=== PATIENT | male | born 2000 | race Caucasian/White ===

== ENCOUNTER 2021-08-15 03:03 | Inpatient (IN) ==
--- NOTE | 2021-08-15 03:27 | Emergency Department Note ---
Impression & Plan Suicide attempt, Alcohol intoxication The case will be signed out to Dr. Sanchez at change of shift ED Provider Note NAME: KYLER CARRION AGE: 20 SEX: M ARRIVES VIA: Ambulance INFORMANT: Patient ED PROVIDER(S): Monae Prado DO CHIEF COMPLAINT: Suicide attempt PLAN: Disposition: The case will be signed out to Dr. Sanchze at change of shift Condition: Stable MEDICAL DECISION MAKING: This is a 20-year-old male patient who presents to the emergency department after taking an Advil which he has a known allergy to (anaphylaxis) in an effort to kill himself. The patient has had increasing depression recently. Patient does see a counselor weekly for therapy. The patient will be medically cleared at 8 AM for formal evaluation by the ED psychiatric caser. Triage Nursing notes reviewed and agree with them Additional history obtained from the patient's friends who petitioned a 302 Vital Signs: reviewed and remarkable for hypertension and tachycardia Differential diagnosis: Mood disorder, alcohol intoxication, suicide attempt Diagnostics interpreted by me: Laboratory studies: See below HPI: 20/M arrives for evaluation of suicide attempt. The patient was out drinking beer tonight. Upon returning home, the patient was increasingly depressed and made an attempt to harm himself by taking a 200 mg Advil tablet. 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 ROS: See above HPI for pertinent positives & negatives. A total of 10 systems reviewed and were otherwise negative. PAST MEDICAL HISTORY:Anxiety and depression; previous suicide attempt in sixth grade by striking himself in the head PAST SURGICAL HISTORY:See Below FAMILY HISTORY:See Below SOCIAL HISTORY:[employer] student with occasional alcohol use HOME MEDICATIONS:See Below ALLERGIES:See list VITALS:See Below PHYSICAL EXAMINATION: HEENT: Head - normocephalic and atraumatic. Pupils are equal, round, and reactive to light. Extraocular eye muscles are intact, and sclera are anicteric. Nose - moist nasal mucosa without discharge. Mouth - moist buccal mucosa. Oropharynx is nonerythematous and there is no tonsillar exudate or edema noted. There was no uvular edema noted. Neck: Supple; no JVD, no cervical lymphadenopathy. Heart: Regular rate and rhythm. There is a normal S1 and S2 with no murmurs, clicks, or gallops appreciated. Lungs: Clear to auscultation bilaterally with no wheezes, rales, or rhonchi. Abdomen: Soft, completely nontender, nondistended, with good bowel sounds. There are no palpable pulsatile masses or hepatosplenomegaly. There is no guarding, rigidity, or rebound noted. Extremities: No evidence of cyanosis, clubbing, or edema. There are easily palpable peripheral pulses. Skin: warm and dry with good turgor and no rashes. Psych: The patient is tearful on exam. He admits to thoughts of suicide and an attempt to harm himself by taking the Advil. ED COURSE: Times/Reassessments: 0310: The patient was evaluated in room A2. A complete history and physical was performed. An order was placed for continuous cardiac monitoring. The patient was in a normal sinus rhythm at a rate of 82. Laboratory studies were drawn as above. A caser spoke with the patient's friends who are petitioning a 302. The patient had no obvious signs of anaphylactic reaction to the Advil. He was then moved into the mental health unit here in the emergency department. The patient will require some time to sober up so that he can be fully evaluated from a psychiatric standpoint. Monae Prado, Past Med/Surg History Medical History No pertinent past medical history Surgical History No pertinent past surgical history Social History Smoking Status: Never smoker Hx Alcohol Use: Yes Hx Substance Use: No Preferred Language: Kazakh marital status: Single Current Living Situation: Other current occupational status: student Feels Safe at Home: Yes Allergies Allergies Allergy/AdvReac Type Severity Reaction Status Date / Time aspirin Allergy Severe Anaphylaxis Verified 05/05/21 21:01 ibuprofen Allergy Severe Anaphylaxis Verified 05/05/21 21:01 Home Meds Home Medications Medication Instructions Recorded Confirmed diphenhydramine HCl 25 mg capsule 25 mg PO DIRECTED PRN 05/05/21 05/05/21 (Benadryl) famotidine 20 mg tablet (Pepcid) 20 mg PO DAILY 05/05/21 05/05/21 Previous Rx's Medication Instructions Recorded cephalexin 500 mg capsule 500 mg PO Q8H #15 cap 05/03/21 Results & Data (ED) Vital Signs Vital Signs - 24 hr 08/15/21 03:11 08/15/21 04:00 08/15/21 06:00 Temperature 36.5 C Temperature Source Oral Pulse Rate 101 H Pulse Rate [Apical] 87 89 Respiratory Rate 18 18 16 Respiratory Effort / Characteristics Non-Labored Spontaneous Non-Labored Spontaneous Respiratory Depth Normal Normal Blood Pressure 150/81 H Blood Pressure [Right Arm] 126/57 L 123/68 Blood Pressure Mean 104 Blood Pressure Mean [Right Arm] 80 86 Blood Pressure Position Sitting Pulse Oximetry 97 95 95 Oxygen Delivery Method Room Air Room Air Room Air Sepsis Recent Fever Within 48 Hours No Sepsis New/Unexplained Change in Mental Status N/A Sepsis Action Taken by Nursing No Action Required Laboratory Data Result diagrams: 08/15/21 04:04 08/15/21 04:04 Lab Results 08/15/21 08/15/21 08/15/21 Range/Units 03:20 03:20 04:04 WBC 6.56 (4.8-10.8) K/uL RBC 4.88 (4.7-6.1) M/uL Hgb 14.5 (14.0-18.0) g/dL Hct 43.6 (42-52) % MCV 89.3 (80-100) fL MCH 29.7 (25-34) pg MCHC 33.3 (32-36) g/dL RDW Std Deviation 44.2 (36.4-46.3) fL RDW Coeff of Windy 13.5 (11.5-14.5) % Plt Count 236 (130-400) K/uL MPV 10.0 (7.4-10.4) fL Immature Gran % (Auto) 0.8 % Neut % (Auto) 57.4 % Lymph % (Auto) 31.3 % [place] % (Auto) 8.2 % Eos % (Auto) 2.1 % Baso % (Auto) 0.2 % Neut # (Auto) 3.77 (1.4-6.5) K/uL Lymph # (Auto) 2.05 (1.2-3.4) K/uL [place] # (Auto) 0.54 (0.11-0.59) K/uL Eos # (Auto) 0.14 (0-0.5) K/uL Baso # (Auto) 0.01 (0-0.2) K/uL Immature Gran # (Auto) 0.05 H (0.00-0.02) K/uL Sodium (136-145) mmol/L Potassium (3.5-5.1) mmol/L Chloride (98-107) mmol/L Carbon Dioxide (21-32) mmol/L Anion Gap (3-11) BUN (6-23) mg/dl Creatinine (0.6-1.4) mg/dl Est Cr Clr Drug Dosing Est GFR ( Amer) ml/min Est GFR (Non-Af Amer) ml/min BUN/Creatinine Ratio (10-20) Glucose (70-99(Fasting)) mg/dl Calcium (8.5-10.1) mg/dl Total Bilirubin (0.2-1.0) mg/dl AST (13-39) U/L ALT (7-52) U/L Alkaline Phosphatase (34-104) U/L Total Protein (6.0-8.3) gm/dl Albumin (3.4-5.0) gm/dl Globulin (2.5-4.0) gm/dl Albumin/Globulin Ratio (0.9-2) TSH (0.300-4.500) uIu/ml Urine Color Yellow Urine Appearance Clear (Clear) Urine pH 5.0 (4.5-7.5) Ur Specific [place] 1.003 (1.000-1.030) Urine Protein Negative (Negative) Urine Glucose (UA) Negative (Negative) Urine Ketones Negative (Negative) Urine Blood Negative (Negative) Urine Nitrite Negative (Negative) Urine Bilirubin Negative (Negative) Urine Urobilinogen Negative (Negative) Ur Leukocyte Esterase Negative (Negative) Salicylates (3.0-30) mg/dl Urine Opiates Screen Neg (Neg) Ur Methadone, Qual Neg (Neg) Acetaminophen (10-30) ug/ml Urine Barbiturates Neg (Neg) Ur Phencyclidine (PCP) Neg (Neg) U Amphetamin/Meth Scrn Neg (Neg) MDMA (Ecstasy) Screen Neg (Neg) U Benzodiazepines Scrn Neg (Neg) Ur Cocaine Metabolite Neg (Neg) U Marijuana (THC) Screen Neg (Neg) Ethyl Alcohol mg/dL (<10.0) mg/dl 08/15/21 08/15/21 08/15/21 Range/Units 04:04 04:04 04:04 WBC (4.8-10.8) K/uL RBC (4.7-6.1) M/uL Hgb (14.0-18.0) g/dL Hct (42-52) % MCV (80-100) fL MCH (25-34) pg MCHC (32-36) g/dL RDW Std Deviation (36.4-46.3) fL RDW Coeff of Windy (11.5-14.5) % Plt Count (130-400) K/uL MPV (7.4-10.4) fL Immature Gran % (Auto) % Neut % (Auto) % Lymph % (Auto) % [place] % (Auto) % Eos % (Auto) % Baso % (Auto) % Neut # (Auto) (1.4-6.5) K/uL Lymph # (Auto) (1.2-3.4) K/uL [place] # (Auto) (0.11-0.59) K/uL Eos # (Auto) (0-0.5) K/uL Baso # (Auto) (0-0.2) K/uL Immature Gran # (Auto) (0.00-0.02) K/uL Sodium 139 (136-145) mmol/L Potassium 3.8 (3.5-5.1) mmol/L Chloride 109 H (98-107) mmol/L Carbon Dioxide 20 L (21-32) mmol/L Anion Gap 10 (3-11) BUN 14 (6-23) mg/dl Creatinine 0.98 (0.6-1.4) mg/dl Est Cr Clr Drug Dosing Not Reportable Est GFR ( Amer) 129.0 ml/min Est GFR (Non-Af Amer) 111.3 ml/min BUN/Creatinine Ratio 14.3 (10-20) Glucose 133 H (70-99(Fasting)) mg/dl Calcium 8.7 (8.5-10.1) mg/dl Total Bilirubin 0.3 (0.2-1.0) mg/dl AST 21 (13-39) U/L ALT 15 (7-52) U/L Alkaline Phosphatase 48 (34-104) U/L Total Protein 7.3 (6.0-8.3) gm/dl Albumin 4.5 (3.4-5.0) gm/dl Globulin 2.8 (2.5-4.0) gm/dl Albumin/Globulin Ratio 1.6 (0.9-2) TSH 0.780 (0.300-4.500) uIu/ml Urine Color Urine Appearance (Clear) Urine pH (4.5-7.5) Ur Specific [place] (1.000-1.030) Urine Protein (Negative) Urine Glucose (UA) (Negative) Urine Ketones (Negative) Urine Blood (Negative) Urine Nitrite (Negative) Urine Bilirubin (Negative) Urine Urobilinogen (Negative) Ur Leukocyte Esterase (Negative) Salicylates < 3.0 L (3.0-30) mg/dl Urine Opiates Screen (Neg) Ur Methadone, Qual (Neg) Acetaminophen < 3 L (10-30) ug/ml Urine Barbiturates (Neg) Ur Phencyclidine (PCP) (Neg) U Amphetamin/Meth Scrn (Neg) MDMA (Ecstasy) Screen (Neg) U Benzodiazepines Scrn (Neg) Ur Cocaine Metabolite (Neg) U Marijuana (THC) Screen (Neg) Ethyl Alcohol mg/dL (<10.0) mg/dl 08/15/21 Range/Units 04:04 WBC (4.8-10.8) K/uL RBC (4.7-6.1) M/uL Hgb (14.0-18.0) g/dL Hct (42-52) % MCV (80-100) fL MCH (25-34) pg MCHC (32-36) g/dL RDW Std Deviation (36.4-46.3) fL RDW Coeff of Windy (11.5-14.5) % Plt Count (130-400) K/uL MPV (7.4-10.4) fL Immature Gran % (Auto) % Neut % (Auto) % Lymph % (Auto) % [place] % (Auto) % Eos % (Auto) % Baso % (Auto) % Neut # (Auto) (1.4-6.5) K/uL Lymph # (Auto) (1.2-3.4) K/uL [place] # (Auto) (0.11-0.59) K/uL Eos # (Auto) (0-0.5) K/uL Baso # (Auto) (0-0.2) K/uL Immature Gran # (Auto) (0.00-0.02) K/uL Sodium (136-145) mmol/L Potassium (3.5-5.1) mmol/L Chloride (98-107) mmol/L Carbon Dioxide (21-32) mmol/L Anion Gap (3-11) BUN (6-23) mg/dl Creatinine (0.6-1.4) mg/dl Est Cr Clr Drug Dosing Est GFR ( Amer) ml/min Est GFR (Non-Af Amer) ml/min BUN/Creatinine Ratio (10-20) Glucose (70-99(Fasting)) mg/dl Calcium (8.5-10.1) mg/dl Total Bilirubin (0.2-1.0) mg/dl AST (13-39) U/L ALT (7-52) U/L Alkaline Phosphatase (34-104) U/L Total Protein (6.0-8.3) gm/dl Albumin (3.4-5.0) gm/dl Globulin (2.5-4.0) gm/dl Albumin/Globulin Ratio (0.9-2) TSH (0.300-4.500) uIu/ml Urine Color Urine Appearance (Clear) Urine pH (4.5-7.5) Ur Specific [place] (1.000-1.030) Urine Protein (Negative) Urine Glucose (UA) (Negative) Urine Ketones (Negative) Urine Blood (Negative) Urine Nitrite (Negative) Urine Bilirubin (Negative) Urine Urobilinogen (Negative) Ur Leukocyte Esterase (Negative) Salicylates (3.0-30) mg/dl Urine Opiates Screen (Neg) Ur Methadone, Qual (Neg) Acetaminophen (10-30) ug/ml Urine Barbiturates (Neg) Ur Phencyclidine (PCP) (Neg) U Amphetamin/Meth Scrn (Neg) MDMA (Ecstasy) Screen (Neg) U Benzodiazepines Scrn (Neg) Ur Cocaine Metabolite (Neg) U Marijuana (THC) Screen (Neg) Ethyl Alcohol mg/dL 200.8 H (<10.0) mg/dl Discharge Plan Visit Data Chief Complaint: Mental Health Evaluation Stated Complaint: ETOH w/50mg ZOLOFT, 200mg Ibuproven (all. NSAIDs) ED Provider: Monae Prado Discharge Problem: Suicide attempt, Alcohol intoxication Forms Stand Alone Forms: My [facility], Suicide Prevention Resources Prescriptions Prescriptions: No Action cephalexin 500 mg capsule 500 mg PO Q8H Qty: 15 RF: 0 famotidine [Pepcid] 20 mg Tablet 20 mg PO DAILY RF: 0 diphenhydramine HCl [Benadryl] 25 mg Capsule 25 mg PO DIRECTED PRN (Reason: Allergic Reaction) RF: 0 Referrals [facility]errals: [facility] [Primary Care Provider] - Discharge Problem: Alcohol intoxication Qualifiers: Complication of substance-induced condition: with unspecified complication Qualified Code(s): F10.929 - Alcohol use, unspecified with intoxication, unspecified
[2021-08-15 03:49] LABS: Appearance Urine Clear (Clear); Bilirubin Urine Negative (Negative); Blood Urine Negative (Negative); Color Urine Yellow; Glucose Urine UA Negative (Negative); Ketones Urine Negative (Negative); Leukocyte Esterase Urine Negative (Negative); Nitrite Urine Negative (Negative); Protein Urine Negative (Negative); Specific Gravity Urine 1.003 (1.000-1.030); Urobilinogen Urine Negative (Negative)
[2021-08-15 04:24] LABS: Basophils # (auto) 0.01 K/uL (0-0.2); Basophils % (auto) 0.2 %; Eosinophils # (auto) 0.14 K/uL (0-0.5); Eosinophils % (auto) 2.1 %; Hematocrit (blood only) 43.6 % (42-52); Hemoglobin 14.5 g/dL (14.0-18.0); Immature Granulocytes # (auto) 0.05 K/uL (0.00-0.02); Immature Granulocytes % (auto) 0.8 %; Lymphocytes # (auto) 2.05 K/uL (1.2-3.4); Lymphocytes % (auto) 31.3 %; Mean Corpuscular Hemoglobin 29.7 pg (25-34); Mean Corpuscular Hgb Conc 33.3 g/dL (32-36); Mean Corpuscular Volume 89.3 fL (80-100); Monocytes # (auto) 0.54 K/uL (0.11-0.59); Monocytes % (auto) 8.2 %; Neutrophils # (auto) 3.77 K/uL (1.4-6.5); Neutrophils % (auto) 57.4 %; Platelet Count 236 K/uL (130-400); RDW Coefficient of Variation 13.5 % (11.5-14.5); RDW Standard Deviation 44.2 fL (36.4-46.3); Red Blood Count 4.88 M/uL (4.7-6.1); White Blood Count 6.56 K/uL (4.8-10.8)
[2021-08-15 04:42] LABS: Alanine Aminotransferase 15 U/L (7-52); Albumin Globulin Ratio 1.6 (0.9-2); Albumin Level 4.5 gm/dl (3.4-5.0); Alkaline Phosphatase 48 U/L (34-104); Anion Gap 10 (3-11); Aspartate Aminotransferase 21 U/L (13-39); BUN Creatinine Ratio 14.3 (10-20); Bilirubin,Total 0.3 mg/dl (0.2-1.0); Blood Urea Nitrogen 14 mg/dl (6-23); Calcium 8.7 mg/dl (8.5-10.1); Carbon Dioxide 20 mmol/L (21-32); Chloride 109 mmol/L (98-107); Est GFR (Non-African American) 111.3 ml/min; Globulin 2.8 gm/dl (2.5-4.0); Glucose 133 mg/dl (70-99(Fasting)); Potassium 3.8 mmol/L (3.5-5.1); Sodium 139 mmol/L (136-145); Total Protein 7.3 gm/dl (6.0-8.3)
[2021-08-15 04:43] LABS: Amphetamines+Metham, Urine Neg (Neg); Barbiturates, Urine Neg (Neg); Benzodiazepine, Urine Neg (Neg); Cocaine, Urine Neg (Neg); MDMA (Ecstacy), Urine Neg (Neg); Methadone, Urine Neg (Neg); Opiate, Urine Neg (Neg); Phencyclidine, Urine Neg (Neg)
[2021-08-15 05:01] LABS: Acetaminophen < 3 ug/ml (10-30); Salicylate < 3.0 mg/dl (3.0-30)
--- NOTE | 2021-08-15 07:21 | Emergency Department Note ---
ED Visit Note This patient was signed out to me at shift change by Dr. Prado. At that point work-up was obtained and the patient had been drinking and was waiting to sober up to be medically cleared to be evaluated case management at 8:00. He had a suicidal attempt and had no evidence of anaphylaxis to the Advil he took at 2:00 in the morning. He was further evaluated by our case management team he did remain stable in the ED he sobered up and I talked to him as well. The patient is willing to sign in voluntarily and has had suicidal ideation/attempt and was seen further by 3 S. and they will be admitting him for further inpatient treatment and evaluation . : Alcohol intoxication Qualifiers: Complication of substance-induced condition: with unspecified complication Qualified Code(s): F10.929 - Alcohol use, unspecified with intoxication, unspecified
[2021-08-15] MEDS ORDERED: BISMUTH SUBSALICYLATE LIQD 236 ML PO PRN (12:32)
[2021-08-15] MEDS ORDERED: hydrOXYzine HCl 25 MG TAB PO PRN ×2 (12:32)
[2021-08-15] MEDS ORDERED: ALUMINUM/MAGNESIUM SUSP 30 ML UDC PO PRN (12:32)
[2021-08-15] MEDS ORDERED: MAGNESIUM HYDROXIDE SUSP 30 ML UDC PO PRN (12:32)
[2021-08-15] MEDS ORDERED: ACETAMINOPHEN 325 MG TAB PO PRN (12:32)
[2021-08-15] MEDS ORDERED: SODIUM CHLORIDE 0.65% NA SOLN 45 ML (OCEAN) PRN (12:32)
[2021-08-15] MEDS ORDERED: SERTRALINE HCL 50 MG TABLET PO ONE (13:07)
[2021-08-15] MEDS ORDERED: ALBUTEROL HFA 8 GM INHALER INH PRN (13:09)
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
[2021-08-15] MEDS ORDERED: MELATONIN 3 MG TAB PO PRN (13:19)
[2021-08-16] MEDS: SERTRALINE HCL 50 MG TABLET PO SCH (08:45)
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
[2021-08-16] MEDS: NALTREXONE HCL 50 MG TAB PO SCH (17:39)
[2021-08-17] MEDS: SERTRALINE HCL 50 MG TABLET PO SCH (08:42)
--- NOTE | 2021-08-17 15:16 | Psychiatric Progress Note ---
Date of Service August 17, 2021 Impression / Recommendations Impression The patient is a 20 year old with a history of depression and anxiety who was admitted for worsening depression and suicide attempt via ingestion of alcohol and ibuprofen, to which he has a history of anaphylaxis, on 201 status. Diagnostically consistent with MDD given prominent depressive symptoms as well as constricted affect, guardedness, irritability and limited spontaneous speech. Per history also consistent with likely JENNA with MDD with anxious distress as well as some symptoms of PTSD but does not meet full criteria presently. The patient is deemed unstable and requires psychiatric hospitalization for diagnostic clarification, safety and stabilization, medication management and development of further coping skills. 08/17/21: Tolerating naltrexone well. Mood has improved and no further SI. Having some flashbacks to events leading to hospitalization but feels able to use coping strategies to help with this. Sleep improved. Spoke with outpatient psychiatrist Dr. Tobar who remains willing to see him weekly and agrees with plan for discharge. (1) Major depressive disorder, recurrent episode with anxious distress: (2) JENNA (generalized anxiety disorder): (3) Suicide attempt: (4) Alcohol use disorder: 08/17/21: continue sertraline, naltrexone and melatonin. Spoke with his outpatient psychiatrist Dr. Tobar to update him and review medication changes. Family meeting held and safety plan completed. Continued motivational interviewing regarding alcohol use. 08/16/21: start naltrexone 25mg qdinner for alcohol use disorder. Continue sertraline and melatonin. 08/15/21: The patient was admitted to [facility] on q15 min checks (behavioral with suicide precautions) for safety. The patient will participate in group, recreational, and milieu therapies and will be offered additional individual and family sessions as clinically appropriate. -Sertraline 50mg now x1 and then 50mg qd -melatonin 9mg qhs prn (he takes 10mg at home) -Will attempt to contact his outpatient psychiatrist for further collateral -Continue to encourage reflection and provide motivational interviewing regarding stressors and alcohol use contributing to current admission. 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 Chief Complaint "I had a good meeting". Review of Systems Sleep Information Total Hours of Sleep: 6.25 Sleep Comments: pt given melatonin per rn. pt on q-15 minute checks Meal Information Percent Meal Consumed - Breakfast: 100 Percent Meal Consumed - Lunch: 100 Percent Meal Consumed - Dinner: 100 Subjective Subjective Patient was seen & assessed and interval progress reviewed with treatment team nursing and social work. Kaden continues to report improved mood with no SI. He had a good family meeting. He's tolerating the naltrexone well without any side effects except brief episode of nausea that lasted for about 1 minute after taking the dose this morning. He's had a few intrusive flashbacks to riding in the ambulance and events that occurred just after his overdose. Reviewed coping strategies to use should this continue to occur including mindfulness and distraction techniques he can use and he feels he can call his parents to talk should this continue to occur. Discussed that if it doesn't improve within the next few weeks to discuss with his outpatient psychiatrist as then higher dose of sertraline could be helpful for this. He feels sleep is improved and likes the melatonin for this. He plans to avoid alcohol use after discharge, praised this decision. Physical Exam Psychiatric Orientation: alert Apperance: appropriately dressed and appropriately groomed Eye Contact: good eye contact Motor Behavior: no abnormal motor movements Speech: normal rate/rhythm/volume of speech Affect: + constricted affect Mood: no depressed mood and no anxious mood Thought Process: goal directed thought process Thought Content: reality based without delusions Suicidal Thoughts: denies suicidal thoughts Homicidal Thoughts: denies homicidal thoughts Hallucinations: no auditory hallucinations and no visual hallucinations Cognition: recent memory grossly intact, remote memory grossly intact, attention grossly intact and language grossly intact Estimated Intelligence: consistent with education level Insight: good insight Judgement: + fair judgement Vital Signs (Past 24 Hours) Last Vital Signs Temp 36.4 C L 08/17/21 06:00 Pulse 52 L 08/17/21 06:00 Resp 16 08/17/21 06:00 BP 124/71 08/17/21 06:00 Pulse Ox 95 08/15/21 12:10 Results & Data ([facility]) Current Inpatient Medications Current Inpatient Medications: Current Inpatient Medications Acetaminophen (Acetaminophen 325 Mg Tab) 650 mg PO Q4H PRN PRN Reason: Headache or Minor Fever Stop: 09/14/21 12:31 Al Hydrox/Mg Hydrox/Simethicone (Aluminum/Magnesium Susp 30 Ml Udc) 30 ml PO Q4H PRN PRN Reason: GI Upset Stop: 09/14/21 12:31 Albuterol (Albuterol Hfa 8 Gm Inhaler) 2 puffs INH Q4H PRN PRN Reason: Shortness Of Breath Stop: 09/14/21 13:08 Last Admin: 08/17/21 00:00 Dose: 2 puffs Documented by: Hydroxyzine HCl (Hydroxyzine Hcl 25 Mg Tab) 50 mg PO HSZ PRN PRN Reason: Insomnia Stop: 09/14/21 12:31 Last Admin: 08/16/21 01:18 Dose: 50 mg Documented by: Hydroxyzine HCl (Hydroxyzine Hcl 25 Mg Tab) 25 mg PO Q4H PRN PRN Reason: Anxiety Stop: 09/14/21 12:31 Magnesium Hydroxide (Magnesium Hydroxide Susp 30 Ml Udc) 30 ml PO DAILY PRN PRN Reason: Constipation Stop: 09/14/21 12:31 Melatonin (Melatonin 3 Mg Tab) 9 mg PO HS PRN PRN Reason: Sleep Stop: 09/14/21 13:18 Last Admin: 08/16/21 22:04 Dose: 9 mg Documented by: Naltrexone HCl (Naltrexone Hcl 50 Mg Tab) 25 mg PO DAILYBD FLORI Stop: 09/15/21 17:14 Last Admin: 08/16/21 17:39 Dose: 25 mg Documented by: Sertraline HCl (Sertraline Hcl 50 Mg Tablet) 50 mg PO QAM FLORI Stop: 09/15/21 08:59 Last Admin: 08/17/21 08:42 Dose: 50 mg Documented by: Sodium Chloride (Sodium Chloride 0.65% Na Soln 45 Ml ([place])) 1 - 2 sprays NA PRN PRN PRN Reason: Nasal Dryness/Congestion Stop: 09/14/21 12:31 Mental Health & Subst Abuse Tx Psychiatrist Name of Psychiatrist: Dr. Tobar Psychiatrist's Psychiatric Appointment Comment: Call to schedule for either Tuesday at 1 p.m. or Tuesday Therapist Name of Therapist: Dr. Tobar Therapist's Post Discharge Appointments Primary Care Physician Name Of Family Doctor: [facility] Primary Care Time of Appointment with PCP: Follow up as needed Provider Appointment Comment: [facility] Contact Information Discharge Discharge Address: [address] [place], [place] [id number]
[2021-08-17] MEDS: NALTREXONE HCL 50 MG TAB PO SCH (17:04)
[2021-08-18] MEDS: SERTRALINE HCL 50 MG TABLET PO SCH (09:07)
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
[2021-08-18] MEDS: NALTREXONE HCL 50 MG TAB PO SCH (11:41)
== END 2021-08-18 12:07 | disposition home or self-care (01) | DRG 885 ==
LOC: ED 03:03 → 3S 12:00
DX: T39.312A Poisoning by propionic acid derivatives, intentional self-harm, initial encounter; Z88.6 Allergy status to analgesic agent; Z79.899 Other long term (current) drug therapy; F33.9 Major depressive disorder, recurrent, unspecified; F41.1 Generalized anxiety disorder